=== PATIENT | female | born 1985 | race Caucasian/White ===

== ENCOUNTER 2017-05-12 07:56 | Emergency (ER) | payer OTHER ==
[2017-05-12] MEDS ORDERED: NORMAL SALINE 1000 ML 1,000 ML IV ONE ×2 (09:00→11:11)
[2017-05-12] MEDS ORDERED: ONDANSETRON HCL INJ/PF 4 MG/2 ML SDV IV ONE (09:06)
--- NOTE | 2017-05-12 09:07 | ER Document Report ---
ED General - General Chief Complaint: Nausea/Vomiting/Diarrhea Stated Complaint: VOMITING Time Seen by Provider: 05/12/17 08:49 Mode of Arrival: Ambulatory Information source: Patient - HPI Notes: 31-year-old female with a history of headaches presents today with complaints of nausea, vomiting, diarrhea, headache, myalgias and abdominal cramping 18 hours after she had 2 meals of tunafish in the last 24 hours. Tunafish was mixed with mayonnaise. denies any fevers or chills. Denies . Denies chest pain, shortness of breath, blurred vision, double vision, loss of vision, lightheadedness or rashes. Worse with time, nothing makes better. Tried antiemetic at home which did not help last night. Get the flu shot this year. Pain is 7 out of 10, cramping and throbbing. - Related Data Allergies/Adverse Reactions: Penicillins Allergy (Verified 05/12/17 07:58) Past Medical History - General Information source: Patient - Social History Smoking Status: Unknown if Ever Smoked Family History: None Neurological Medical History: Reports: Hx Migraine Past Surgical History: Reports: Hx Section - Immunizations Hx Diphtheria, Pertussis, Tetanus Vaccination: Yes Review of Systems - Review of Systems Constitutional: See HPI EENT: No symptoms reported Cardiovascular: No symptoms reported Respiratory: No symptoms reported Gastrointestinal: See HPI Genitourinary: No symptoms reported Female Genitourinary: No symptoms reported Musculoskeletal: No symptoms reported Skin: No symptoms reported Hematologic/Lymphatic: No symptoms reported Neurological/Psychological: No symptoms reported Physical Exam - Vital signs Vitals: Temp Pulse Resp BP Pulse Ox 100 F 128 H 18 112/79 97 05/12/17 08:09 05/12/17 08:09 05/12/17 08:09 05/12/17 08:09 05/12/17 08:09 Interpretation: Tachycardic - General General appearance: Appears well In distress: Mild - HEENT Head: Normocephalic Eyes: Normal Conjunctiva: Normal External canal: Normal Tympanic membrane: Normal, Serous effusion Sinus: Normal Nasal: Normal Mouth/Lips: Normal Mucous membranes: Normal Pharynx: Normal, Erythema Neck: Normal - Respiratory Respiratory status: No respiratory distress Chest status: Nontender Breath sounds: Normal Chest palpation: Normal - Cardiovascular Rhythm: Regular, Tachycardia Heart sounds: Normal auscultation Murmur: No Pulses: Normal: Radial - Abdominal Inspection: Normal Distension: No distension Bowel sounds: Hyperactive Tenderness: Tender - diffuse. No: McBurney's point, Salvador's sign Organomegaly: No organomegaly - Extremities General upper extremity: Normal inspection, Nontender, Normal strength, Normal temperature General lower extremity: Normal inspection, Nontender, Normal strength, Normal temperature - Neurological Neuro grossly intact: Yes Cognition: Normal Orientation: AAOx4 [place] Coma Scale Verbal: Oriented [place] Coma Scale Motor: Obeys Commands Speech: Normal Biceps - Reflex grade: 2 = Normal Triceps - Reflex grade: 2 = Normal - Psychological Associated symptoms: Normal affect, Normal mood - Skin Skin Temperature: Warm Skin Moisture: Dry Skin Color: Normal Course - Re-evaluation Re-evalutation: lab findings showed a potassium of 3.0. Will do EKG place patient on a personnel monitor and give her 40 mEq of potassium chloride to replace potassium, will repeat potassium testing. Still waiting for urinalysis results. Potassium elevated to 3.3. Patient is feeling much better, reports she has not had any nausea or vomiting since this morning after she came to the ER. consulted this case with Dr. Bo Wyman, ER attending, regarding potassium patient is feeling better. Agreed that since patient is feeling better and her potassium is trending up with a high potassium diet should be okay to go home. Patient feels she is well hydrated. Advised to have a high potassium diet with eating foods like bananas and replacing with Pedialyte. Patient's vitals are stable. She would like to go home. Discussed with patient that we will be giving her a prescription for Zofran for antinausea medication as well as Bentyl to help with any diarrhea. Patient verbalized understanding of these instructions and agree with plan of care. - Vital Signs Vital signs: Temp Pulse Resp BP Pulse Ox 98.9 F 128 H 15 108/70 100 05/12/17 13:44 05/12/17 08:09 05/12/17 14:01 05/12/17 14:01 05/12/17 14:01 - Laboratory Result Diagrams: 05/12/17 09:35 05/12/17 14:00 Laboratory results interpreted by me: 05/12/17 05/12/17 05/12/17 09:35 09:35 09:35 Seg Neutrophils % 85.3 H Lymphocytes % 8.7 L Potassium 3.0 L* Phosphorus 1.8 L C-Reactive Protein 54.8 H Urine Urobilinogen Ur Leukocyte Esterase 05/12/17 05/12/17 11:15 14:00 Seg Neutrophils % Lymphocytes % Potassium 3.3 L Phosphorus C-Reactive Protein Urine Urobilinogen 2.0 H Ur Leukocyte Esterase SMALL H Discharge - Discharge Clinical Impression: Hypokalemia, Gastroenteritis Condition: Good Disposition: HOME, SELF-CARE Instructions: Antinausea Medication ([facility]), Food Poisoning ([facility]) Additional Instructions: Food Poisoning Your symptoms appear to be due to food poisoning. Food poisoning is due to bacterial poisons in food. It occurs when bacteria (usually staph) get into food, then have time to grow before the food is eaten. Symptoms usually begin about an hour after the contaminated food is eaten -- typically abdominal cramps , vomiting, and diarrhea. Refrigeration of food usually prevents food poisoning. Food poisoning usually resolves within a few hours without treatment. The bowel should be rested: nothing by mouth for about four hours, then frequent sips of clear liquids for another six to eight hours. Further treatment may be required for severe or prolonged vomiting, dehydration, or severe abdominal cramping. Call the doctor or come back if symptoms do not resolve within 24 hours, or if you worsen in any way -- for example you develop worsening pain, high fever, or blood in the stools. Hypokalemia You have an abnormally decreased level of serum potassium. Hypokalemia may cause weakness, fatigue, or heart rhythm abnormalities. Sometimes there are no symptoms at all. Usually, low serum potassium is due to taking diuretics ( water pills). It can also be due to excessive vomiting or diarrhea. If no obvious cause is evident, further evaluation will be necessary. Treatment is usually oral potassium supplements. Take these exactly as prescribed. You may also want to select foods which are naturally high in potassium -- fruits (such as bananas, cantaloupe, grapes, oranges, prunes, tomatoes), fresh vegetables (potatoes, spinach, beans, peas), orange or tomato juice, tomato pasta sauce, milk, fish (halibut, tuna, salmon, michael) A follow-up blood test is usually performed to assure that the potassium is returning to normal. Call the physician if you suffer severe weakness, muscle twitching or cramping, palpitations (pounding or irregular heartbeat), or any other new or alarming symptoms. Up with primary care within 24 hours. Follow high potassium diet. Prescribed Antidiarrhea Medication Your doctor has prescribed antidiarrhea medication for you. While the usual treatment for diarrhea is a clear liquid diet to rest the bowels, an antidiarrheal medicine may allow you to be more active and comfortable while you recover. This medication can make you drowsy. Do not drive or operate machinery while under its influence. Do not combine with alcohol. Prescription antidiarrhea medicine can cause dry mouth. Occasionally, it can make you unable to pass your urine. Do not exceed the prescribed dosage. Severe abdominal pains, lightheadedness, bloody stool, or fever indicate that your disease is worsening. If these occur, stop the medication and see your doctor at once. Return immediately for any new or worsening symptoms. Follow up with primary care provider, call tomorrow to make followup appointment. Prescriptions: Dicyclomine HCl [Bentyl 10 mg Capsule] 10 mg PO TIDP PRN #10 capsule PRN Reason: Ondansetron [Zofran Odt 4 mg Tablet] 1 - 2 tab PO Q4H PRN #15 tab.rapdis PRN Reason: For Nausea/Vomiting Forms: Return to Work Referrals: TANNER RODRIGUEZ MD [ACTIVE STAFF] - Follow up tomorrow
[2017-05-12 10:05] LABS: ABSOLUTE EOSINOPHILS # (AUTO) 0.1 10^3/uL (0.0-0.6); ABSOLUTE LYMPHOCYTES (AUTO) 0.8 10^3/uL (0.5-4.7); ABSOLUTE MONOCYTES (AUTO) 0.4 10^3/uL (0.1-1.4); ABSOLUTE NEUT (AUTO) 7.9 10^3/uL (1.7-8.2); BASOPHILS % (AUTO) 0.4 % (0-2); EOSINOPHILS % (AUTO) 0.7 % (0-6); HEMATOCRIT 40.3 % (36.0-47.0); HEMOGLOBIN 13.8 g/dL (12.0-15.5); LYMPHOCYTES % (AUTO) 8.7 % (13-45); MEAN CORPUSCULAR HGB CONC 34.2 g/dL (32.0-36.0); MEAN CORPUSCULAR VOLUME 88 fl (80-97); MONOCYTES % (AUTO) 4.9 % (3-13); PLATELET COUNT 171 10^3/uL (150-450); RED BLOOD COUNT 4.61 10^6/uL (3.72-5.28); SEGMENTED NEUTROPHILS % (AUTO) 85.3 % (42-78); TOTAL CELLS COUNTED % (AUTO) 100 %; WHITE BLOOD COUNT 9.2 10^3/uL (4.0-10.5)
[2017-05-12 10:26] LABS: A TYPE INFLUENZA AG NEGATIVE (NEGATIVE); B INFLUENZA AG NEGATIVE (NEGATIVE)
[2017-05-12 10:31] LABS: ALANINE AMINOTRANSFERASE 31 U/L (9-52); ALBUMIN 3.9 g/dL (3.5-5.0); ALKALINE PHOSPHATASE 63 U/L (38-126); ANION GAP 10 (5-19); ASPARTATE AMINO TRANSFERASE 32 U/L (14-36); BILIRUBIN,DIRECT 0.4 mg/dL (0.0-0.4); BILIRUBIN,TOTAL 0.6 mg/dL (0.2-1.3); BLOOD UREA NITROGEN 11 mg/dL (7-20); C-REACTIVE PROTEIN 54.8 mg/L (<10.0); CALCIUM 8.6 mg/dL (8.4-10.2); CARBON DIOXIDE 22 mmol/L (22-30); CHLORIDE 106 mmol/L (98-107); GLUCOSE 103 mg/dL (75-110); TOTAL PROTEIN 6.5 g/dL (6.3-8.2)
[2017-05-12] MEDS ORDERED: POTASSIUM CHLORIDE 10 MEQ TABLET.SA PO ONE (10:53)
[2017-05-12] MEDS ORDERED: PROMETHAZINE HCL INJ 25 MG/1 ML VIAL IV ONE (11:15)
[2017-05-12] MEDS ORDERED: DICYCLOMINE HCL 10 MG CAPSULE PO ONE (11:15)
[2017-05-12 11:25] LABS: MAGNESIUM 1.7 mg/dL (1.6-2.3); PHOSPHORUS 1.8 mg/dL (2.5-4.5)
[2017-05-12 11:45] LABS: APPEARANCE,URINE SLIGHTLY-CLOUDY; BILIRUBIN,URINE NEGATIVE (NEGATIVE); COLOR,URINE YELLOW; GLUCOSE, URINE NEGATIVE (NEGATIVE); KETONES,URINE NEGATIVE (NEGATIVE); LEUKOCYTE ESTERASE,URINE SMALL (NEGATIVE); NITRITE,URINE NEGATIVE (NEGATIVE); PROTEIN,URINE NEGATIVE (NEGATIVE); URINE SPECIFIC GRAVITY 1.012
[2017-05-12] MEDS ORDERED: ACETAMINOPHEN 325 MG TABLET PO ONE (12:07)
--- NOTE | 2017-05-12 12:54 | EKG REPORT ---
SEVERITY:- BORDERLINE ECG - SINUS RHYTHM PROBABLE LEFT ATRIAL ABNORMALITY BORDERLINE T WAVE ABNORMALITIES : Confirmed by: Johnathan Camacho MD 12-May-2017 12:54:12
[2017-05-12 15:38] VITALS: BP 97/66
== END 2017-05-12 16:00 | disposition home or self-care (01) ==
LOC: ER 07:56
DX: K52.9 Noninfective gastroenteritis and colitis, unspecified (principal); E87.6 Hypokalemia; R11.2 Nausea with vomiting, unspecified; R51 Headache; M79.1 Myalgia; R00.0 Tachycardia, unspecified; R10.817 Generalized abdominal tenderness; Z88.0 Allergy status to penicillin
CPT/HCPCS: 93005; 99284; 96361; 96374; 96375; 36415; 87086; 83735; 84100; 84132; 85025; 81025; 86140; 87088; 80053; 81001; 87804; 93010; J3490; J2550; J2405; J7030

== ENCOUNTER 2017-07-09 02:11 | Emergency (ER) | payer OTHER ==
[2017-07-09] MEDS ORDERED: NORMAL SALINE 1000 ML 1,000 ML IV ONE ×2 (02:46→04:08)
[2017-07-09] MEDS ORDERED: ONDANSETRON HCL INJ/PF 4 MG/2 ML SDV IV ONE (02:47)
--- NOTE | 2017-07-09 02:48 | ER Document Report ---
ED GI/ - General Chief Complaint: Nausea/Vomiting/Diarrhea Stated Complaint: VOMITING/DIARRHEA Time Seen by Provider: 07/09/17 02:40 Notes: Patient is a 31-year-old female who comes emergency department for chief complaint of vomiting, diarrhea, and mid abdominal pain. Symptoms started this afternoon. She states she has had about 20 episodes of diarrhea, watery, nonbloody. She vomited about 6 times. She denies fever. She denies any obvious sick contacts, raw food, recent antibiotics, recent travel. She has had a tubal ligation and C-sections, takes no daily medications, denies any medical history otherwise. TRAVEL OUTSIDE OF THE [place] IN LAST 30 DAYS: No - Related Data Allergies/Adverse Reactions: Penicillins Allergy (Verified 07/09/17 02:16) Past Medical History - General Information source: Patient - Social History Smoking Status: Never Smoker Drug Abuse: None Lives with: Family Family History: None Neurological Medical History: Reports: Hx Migraine Renal/ Medical History: Denies: Hx Peritoneal Dialysis Past Surgical History: Reports: Hx Section - Immunizations Hx Diphtheria, Pertussis, Tetanus Vaccination: Yes Review of Systems - Review of Systems Constitutional: No symptoms reported EENT: No symptoms reported Cardiovascular: No symptoms reported Respiratory: No symptoms reported Gastrointestinal: See HPI Genitourinary: No symptoms reported Female Genitourinary: No symptoms reported Musculoskeletal: No symptoms reported Skin: No symptoms reported Hematologic/Lymphatic: No symptoms reported Neurological/Psychological: No symptoms reported Physical Exam - Vital signs Vitals: Temp Pulse Resp BP Pulse Ox 97.8 F 98 20 136/97 H 97 07/09/17 02:19 07/09/17 02:19 07/09/17 02:19 07/09/17 02:19 07/09/17 02:19 - General General appearance: Alert In distress: None - HEENT Head: Normocephalic, Atraumatic Eyes: Normal Conjunctiva: Normal Extraocular movements intact: Yes Eyelashes: Normal Pupils: PERRL Nasal: Normal Mouth/Lips: Normal Mucous membranes: Dry Pharynx: Normal Neck: Normal - Respiratory Respiratory status: No respiratory distress Breath sounds: Normal. No: Decreased air movement, Wheezing - Cardiovascular Rhythm: Regular. No: Tachycardia Heart sounds: Normal auscultation, S1 appreciated, S2 appreciated - Abdominal Inspection: Normal Distension: No distension Bowel sounds: Hyperactive Tenderness: Tender - Mild generalized tenderness with no guarding, rigidity, or rebound tenderness - Back Back: Normal, Nontender. No: Tender - Extremities General upper extremity: Normal inspection, Nontender, Normal ROM, Normal strength General lower extremity: Normal inspection, Nontender, Normal ROM, Normal strength. No: Edema - Neurological Neuro grossly intact: Yes Cognition: Normal Orientation: AAOx4 [place] Coma Scale Eye Opening: Spontaneous [place] Coma Scale Verbal: Oriented [place] Coma Scale Motor: Obeys Commands [place] Coma Scale Total: 15 Speech: Normal Motor strength normal: LUE, RUE, LLE, RLE Sensory: Normal - Skin Skin Temperature: Warm Skin Moisture: Dry Skin Color: Flushed Course - Re-evaluation Re-evalutation: Patient has dry mucous membranes, mild generalized abdominal tenderness, persistent diarrhea. Provided a sample, afterwards she was medicated. She appears clinically dry. CBC shows leukocytosis, nonspecific with diarrhea and dehydration. Chemistry does show dehydration with low bicarbonate. Urine is slightly contaminated but also has large amount of leukocyte esterase with bacteria. Stool has some blood in it but this is not surprising given persistent diarrhea, it is not grossly bloody, no white blood cells, C. difficile negative, culture pending. After medications and rehydration, patient states she feels excellent, she is tolerating fluids without any difficulty. Suspect this is infectious and not acute abdomen, patient does not appear septic (well-appearing, unremarkable vital signs). Starting on Cipro for UTI and persistent diarrhea pending cultures. Discussed medications, diet, follow-up, return precautions. Patient states understanding and agreement. - Vital Signs Vital signs: Temp Pulse Resp BP Pulse Ox 97.8 F 98 20 125/96 H 97 07/09/17 02:19 07/09/17 02:19 07/09/17 04:02 07/09/17 04:02 07/09/17 04:02 - Laboratory Result Diagrams: 07/09/17 02:55 07/09/17 02:55 Laboratory results interpreted by me: 07/09/17 07/09/17 07/09/17 02:55 02:55 02:55 WBC 16.1 H Lymphocytes % 12.6 L Absolute Neutrophils 12.5 H Absolute Eosinophils 0.8 H Chloride 109 H Carbon Dioxide 18 L Glucose 124 H Urine Protein 30 H Ur Leukocyte Esterase LARGE H Discharge - Discharge Clinical Impression: Nausea vomiting and diarrhea, Dehydration Condition: Stable Disposition: HOME, SELF-CARE Additional Instructions: Initial stool tests are negative, we have a stool culture growing in our lab. Because of persistent diarrhea and developing urinary tract infection I recommend taking the Cipro antibiotic as prescribed. Take the [place] given an Dosepak only if needed to start on bowels and for discomfort. Take the Phenergan for nausea, take the Carafate to help heal your stomach. Start with clear fluids and bland diet, slowly progress. Return if you worsen including return or uncontrolled vomiting, spiking fever, returned or worsening abdominal pain, or any other concerning or worsening symptoms. Prescriptions: Ciprofloxacin HCl [Cipro 500 mg Tablet] 500 mg PO BID #14 tablet Promethazine HCl [Phenergan 25 mg Tablet] 1 - 2 tab PO Q6H PRN #20 tablet PRN Reason: Sucralfate [Carafate 1 gm Tablet] 1 gm PO QID #20 tablet
[2017-07-09 03:14] LABS: ABSOLUTE BASOPHILS # (AUTO) 0.1 10^3/uL (0.0-0.2); ABSOLUTE EOSINOPHILS # (AUTO) 0.8 10^3/uL (0.0-0.6); ABSOLUTE MONOCYTES (AUTO) 0.8 10^3/uL (0.1-1.4); ABSOLUTE NEUT (AUTO) 12.5 10^3/uL (1.7-8.2); BASOPHILS % (AUTO) 0.4 % (0-2); EOSINOPHILS % (AUTO) 4.7 % (0-6); HEMATOCRIT 45.5 % (36.0-47.0); HEMOGLOBIN 15.5 g/dL (12.0-15.5); LYMPHOCYTES % (AUTO) 12.6 % (13-45); MEAN CORPUSCULAR HEMOGLOBIN 30.2 pg (27.0-33.4); MEAN CORPUSCULAR VOLUME 89 fl (80-97); MONOCYTES % (AUTO) 4.7 % (3-13); PLATELET COUNT 260 10^3/uL (150-450); RED BLOOD COUNT 5.12 10^6/uL (3.72-5.28); SEGMENTED NEUTROPHILS % (AUTO) 77.6 % (42-78); TOTAL CELLS COUNTED % (AUTO) 100 %; WHITE BLOOD COUNT 16.1 10^3/uL (4.0-10.5)
[2017-07-09 03:27] LABS: ALANINE AMINOTRANSFERASE 33 U/L (9-52); ALBUMIN 4.8 g/dL (3.5-5.0); ALKALINE PHOSPHATASE 113 U/L (38-126); ANION GAP 16 (5-19); ASPARTATE AMINO TRANSFERASE 31 U/L (14-36); BILIRUBIN,DIRECT 0.2 mg/dL (0.0-0.4); BILIRUBIN,TOTAL 0.5 mg/dL (0.2-1.3); BLOOD UREA NITROGEN 15 mg/dL (7-20); CALCIUM 9.8 mg/dL (8.4-10.2); CARBON DIOXIDE 18 mmol/L (22-30); CHLORIDE 109 mmol/L (98-107); GLUCOSE 124 mg/dL (75-110); LIPASE 87.8 U/L (23-300); POTASSIUM 4.2 mmol/L (3.6-5.0); SODIUM 142.8 mmol/L (137-145); TOTAL PROTEIN 7.9 g/dL (6.3-8.2)
[2017-07-09 04:02] LABS: CALCIUM OXALATE CRYSTALS,URINE MANY /HPF
[2017-07-09] MEDS ORDERED: MORPHINE SULFATE 10 MG/ML INJ IV ONE (04:08)
[2017-07-09 04:13] LABS: COLOR,URINE YELLOW
[2017-07-09 04:14] LABS: LEUKOCYTE ESTERASE,URINE LARGE (NEGATIVE); NITRITE,URINE NEGATIVE (NEGATIVE)
[2017-07-09 04:15] LABS: APPEARANCE,URINE OPAQUE; BILIRUBIN,URINE NEGATIVE (NEGATIVE); GLUCOSE, URINE NEGATIVE (NEGATIVE); KETONES,URINE NEGATIVE (NEGATIVE); PROTEIN,URINE 30 mg/dL (NEGATIVE); URINE SPECIFIC GRAVITY 1.025; UROBILINOGEN,URINE NEGATIVE mg/dL (<2.0)
[2017-07-09] MEDS ORDERED: OXYCODONE-ACETAMINOPHEN 5-325 MG TABLET PO ONE (05:26)
[2017-07-09] MEDS ORDERED: SUCRALFATE 1 GM TABLET PO ONE (05:26)
[2017-07-09] MEDS ORDERED: PROMETHAZINE HCL 25 MG TABLET PO ONE (05:26)
[2017-07-09] MEDS ORDERED: HYDROCODONE/ACETAMINOPHEN 5-325 MG (6 TAB/ER DISP) PO PRN (06:25)
[2017-07-09 06:49] VITALS: BP 123/91
== END 2017-07-09 06:45 | disposition home or self-care (01) ==
LOC: ER 02:11
DX: R11.2 Nausea with vomiting, unspecified (principal); R19.7 Diarrhea, unspecified; K92.1 Melena; E86.0 Dehydration; D72.829 Elevated white blood cell count, unspecified; R10.9 Unspecified abdominal pain; R10.817 Generalized abdominal tenderness; Z88.0 Allergy status to penicillin
CPT/HCPCS: 99284; 96361; 96374; 96375; 36415; 87045; 87086; 89055; 87205; 83690; 85025; 82272; 81025; 87088; 80053; 81001; 87493; J2270; J2405; J7030

== ENCOUNTER 2017-10-19 01:57 | Emergency (ER) | payer OTHER ==
[2017-10-19] MEDS ORDERED: NORMAL SALINE 1000 ML 1,000 ML IV ONE (02:18)
[2017-10-19] MEDS ORDERED: KETOROLAC TROMETHAMINE INJ/PF 30 MG/1 ML SDV IV ONE (02:19)
[2017-10-19] MEDS ORDERED: PROCHLORPERAZINE EDISYLATE INJ 10 MG/2 ML VIAL IV ONE (02:19)
[2017-10-19] MEDS ORDERED: DIPHENHYDRAMINE HCL 50 MG/ML VIAL IV ONE (02:19)
--- NOTE | 2017-10-19 02:24 | ER Document Report ---
HPI - HPI Pain Level: 4 Notes: Patient is a 32-year-old female with a history of chronic recurrent migraines who presents to the ED complaining of a migraine 2-3 days. Patient states that she was not taking her Lexapro, Topamax for the last 6-7 days as she was away from her house. Patient states that she did take some this afternoon, but her headache has been persistent. Patient states that her headache is to the frontal area. The pain does not radiate. Patient states that this pain is not new for her and mimics her acute migraine exacerbations. Patient states that she had an MRI and imaging performed within the last year. Patient states that she did have 3 episodes of vomiting today because of the headache, but has been keeping some fluids in. She is urinating normally and having normal bowel movements. Patient is currently on her menstrual period and had a tubal ligation performed in the past. Denies any fever, head injury, neck pain, changes in vision/speech/mentation/hearing, URI, sore throat, chest pain, palpitations, syncope, cough, shortness of breath, wheeze, dyspnea, abdominal pain, diarrhea, urinary retention, dysuria, hematuria, loss of control of bowel or bladder, numbness/tingling, muscle paralysis/weakness, or rash. - ROS Systems Reviewed and Negative: Yes All other systems reviewed and negative - REPRODUCTIVE Reproductive: REPORTS: : Past Medical History - Social History Smoking Status: Never Smoker Family History: None Neurological Medical History: Reports: Hx Migraine Renal/ Medical History: Denies: Hx Peritoneal Dialysis Past Surgical History: Reports: Hx Section - Immunizations Hx Diphtheria, Pertussis, Tetanus Vaccination: Yes Vertical Provider Document - CONSTITUTIONAL Agree With Documented VS: Yes Notes: PHYSICAL EXAMINATION: GENERAL: Well-appearing, well-nourished and in no acute distress. A&Ox4. Answers questions appropriately. HEAD: Atraumatic, normocephalic. Non-tender. EYES: Pupils equal round and reactive to light, extraocular movements intact, sclera anicteric, conjunctiva are normal. No nystagmus. ENT: EAC clear b/l. TM's intact b/l without erythema, fluid, or perforation. Nares patent and without discharge. oropharynx clear without exudates. No tonsilar hypertrophy or erythema. Moist mucous membranes. No sinus tenderness. NECK: Normal range of motion, supple without lymphadenopathy. No rigidity. No midline tenderness. Kernig/brudzinski neg. LUNGS: Breath sounds clear to auscultation bilaterally and equal. No wheezes rales or rhonchi. HEART: Regular rate and rhythm without murmurs, rubs, gallops. ABDOMEN: Soft, nontender, nondistended abdomen. No guarding, no rebound. No masses appreciated. Normal bowel sounds present. No CVA tenderness bilaterally. Musculoskeletal: Ext b/l: FROM to passive/active. Strength 5+/5. No deficits noted. Extremities: No cyanosis, clubbing, or edema b/l. Peripheral pulses 2+. Capillary refill less than 2 seconds. NEUROLOGICAL: NIH 0. GCS 15. Cranial nerves grossly intact. Normal speech, normal gait. Normal sensory, motor exams. Reflexes 2+ b/l. ELÍAS's negative. Pronator drift negative. PSYCH: Normal mood, normal affect. SKIN: Warm, Dry, normal turgor, no rashes or lesions noted. - INFECTION CONTROL TRAVEL OUTSIDE OF THE [place] IN LAST 30 DAYS: No Course - Re-evaluation Re-evalutation: 10/19/17 03:35 Patient is an afebrile, well-hydrated, 32-year-old female who presents to the ED with a headache, suspect 1 of her typical migraines based on H&P today. Vitals are acceptable without any significant tachycardia, tachypnea, or hypoxia. PE is otherwise unremarkable for any focal neurological deficits. NIH 0, GCS 15, cranial nerves grossly intact. Patient was given fluids, Benadryl, Compazine, and Toradol. Patient's headache greatly improved and patient would like to go home. 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 Patient is tolerating p.o. without difficulties and is nontoxic-appearing. No labs or imaging warranted at this time based on H&P. Low suspicion for any acute glaucoma, temporal arteritis, meningitis, intracranial hemorrhage, ischemic stroke, or fracture at this time. Patient is aware that her condition can change from initial presentation and that she needs to monitor symptoms closely for any acute changes. Conservative measures for symptoms. Recheck with your PCM in 2-3 days. Return to the ED with any worsening/concerning symptoms otherwise as reviewed discharge. Patient is in agreement. - Vital Signs Vital signs: Temp Pulse Resp BP Pulse Ox 97.4 F 73 18 115/87 H 99 10/19/17 02:03 10/19/17 02:03 10/19/17 02:03 10/19/17 02:03 10/19/17 02:03 Discharge - Discharge Clinical Impression: Headache Qualifiers: Headache type: unspecified Headache chronicity pattern: acute headache Intractability: not intractable Qualified Code(s): R51 - Headache Condition: Stable Disposition: HOME, SELF-CARE Instructions: Headache ([facility]) Additional Instructions: Rest, Ice/cool compresses Tylenol/ibuprofen as needed Light stretches daily Strength exercises as able Moist heat and massage may help F/u with your PCP in 3-5 days for a recheck Consider consult(s) with Neurology for ongoing/worsening symptoms Return to the ED with any worsening symptoms and/or development of fever, headache, changes in behavior/mentation/vision/speech, chest pain, palpitations , syncope, shortness of breath, trouble breathing, abdominal pain, n/v/d, blood in stool/urine, loss of control of bowel/bladder, urinary retention, muscle weakness/paralysis, saddle anesthesia, numbness/tingling, or other worsening symptoms that are concerning to you. Forms: Elevated Blood Pressure Referrals: SAMEERA TORIBIO MD [NO LOCAL MD] - Follow up as needed
[2017-10-19 03:56] VITALS: BP 118/73
== END 2017-10-19 03:56 | disposition home or self-care (01) ==
LOC: ER 01:57
DX: R51 Headache (principal); R11.10 Vomiting, unspecified; R40.2410 Glasgow coma scale score 13-15, unspecified time
CPT/HCPCS: 99284; 96361; 96374; 96375; J1200; J1885; J0780; J7030

== ENCOUNTER 2018-09-01 15:26 | Emergency (ER) | payer OTHER ==
[2018-09-01] MEDS ORDERED: KETOROLAC TROMETHAMINE 60 MG/2 ML SDV IM ONE (16:17)
[2018-09-01] MEDS ORDERED: DIPHENHYDRAMINE HCL 50 MG/ML VIAL IV ONE (16:17)
[2018-09-01] MEDS ORDERED: PROCHLORPERAZINE EDISYLATE INJ 10 MG/2 ML VIAL IV ONE (16:17)
--- NOTE | 2018-09-01 16:27 | ER Document Report ---
HPI - HPI Time Seen by Provider: 09/01/18 16:04 Pain Level: 5 Notes: Patient is a 32-year-old female with a history of chronic recurrent migraines who presents to the ED complaining of a migraine that began this morning. She did have associated n/v initially. Patient has been taking her home medications for migraines which usually work well for her, but when he gets to this point she needs to come to the emergency department. Patient states that her headache is to the frontal area which is where it is always located. The pain does not radiate. Patient states that this pain is not new for her and mimics her acute migraine exacerbations. Patient has had imaging in the past for this issue. I also evaluated this patient and treated her for her last migraine exacerbation last summer. Patient states that she has been able to keep fluids down otherwise today, but with decreased p.o. intake. She is urinating normally and having normal bowel movements. Patient had a tubal ligation performed in the past. Denies any fever, head injury, neck pain, changes in vision/speech/mentation/hearing, URI, sore throat, chest pain, palpitations, syncope, cough, shortness of breath, wheeze, dyspnea, abdominal pain, diarrhea, urinary retention, dysuria, hematuria, loss of control of bowel or bladder, numbness/tingling, muscle paralysis/weakness, or rash. 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 Migraine cocktail worked well for her at her last visit. - ROS Systems Reviewed and Negative: Yes All other systems reviewed and negative - REPRODUCTIVE Reproductive: DENIES: : - DERM Skin Color: Normal Past Medical History - Social History Smoking Status: Never Smoker Family History: None Patient has suicidal ideation: No Patient has homicidal ideation: No Neurological Medical History: Reports: Hx Migraine Renal/ Medical History: Denies: Hx Peritoneal Dialysis Past Surgical History: Reports: Hx Section - Immunizations Hx Diphtheria, Pertussis, Tetanus Vaccination: Yes Vertical Provider Document - CONSTITUTIONAL Agree With Documented VS: Yes Notes: PHYSICAL EXAMINATION: GENERAL: Well-appearing, well-nourished and in no acute distress. A&Ox4. Answers questions appropriately. HEAD: Atraumatic, normocephalic. Non-tender. EYES: Pupils equal round and reactive to light, extraocular movements intact, sclera anicteric, conjunctiva are normal. No nystagmus. ENT: EAC clear b/l. TM's intact b/l without erythema, fluid, or perforation. Nares patent and without discharge. oropharynx clear without exudates. No tonsilar hypertrophy or erythema. Moist mucous membranes. No sinus tenderness. NECK: Normal range of motion, supple without lymphadenopathy. No rigidity/meningismus. No midline tenderness. LUNGS: Breath sounds clear to auscultation bilaterally and equal. No wheezes rales or rhonchi. HEART: Regular rate and rhythm without murmurs, rubs, gallops. ABDOMEN: Soft, nontender, nondistended abdomen. No guarding, no rebound. Normal bowel sounds present. No CVA tenderness bilaterally. Musculoskeletal: Ext b/l: FROM to passive/active. Strength 5+/5. No deficits noted. No bony tenderness of extremities. Extremities: No cyanosis, clubbing, or edema b/l. Peripheral pulses 2+. Capillary refill less than 2 seconds. NEUROLOGICAL: NIH 0. GCS 15. Cranial nerves grossly intact. Normal speech, normal gait. Normal sensory, motor exams. Reflexes 2+ b/l. ELÍAS's negative. Pronator drift negative. Heel/dugan, finger/nose wnl. Rhomberg neg. PSYCH: Normal mood, normal affect. SKIN: Warm, Dry, normal turgor, no rashes or lesions noted. - INFECTION CONTROL TRAVEL OUTSIDE OF THE [place] IN LAST 30 DAYS: No Course - Re-evaluation Re-evalutation: 09/01/18 18:07 Patient is an afebrile, well-hydrated, 32-year-old female who presents to the ED with a headache, suspect migraine. Vitals are acceptable without any significant tachycardia, tachypnea, or hypoxia. PE is otherwise unremarkable for any focal neurological deficits. NIH 0, GCS 15, cranial nerves grossly intact. Patient has had headaches like this in the past recently. No labs or imaging warranted at this time based on H&P. Patient was given Toradol, Compazine, and benadryl which has resolved her headache. Patient states that she is feeling much better and would like to go home. She is nontoxic-appearing and is tolerating p.o. without any difficulties. 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 Low suspicion for any acute glaucoma, temporal arteritis, meningitis, intracranial hemorrhage, ischemic stroke, sepsis, or fracture at this time. Patient is aware that this condition can change from initial presentation and that she needs to monitor symptoms closely for any acute changes. Recheck with your PCM/neurologist in 3-5 days. Return to the ED with any worsening/concerning symptoms otherwise as reviewed in discharge. Patient is in agreement. - Vital Signs Vital signs: Temp Pulse Resp BP Pulse Ox 97.4 F 71 18 122/83 97 09/01/18 15:31 09/01/18 15:31 09/01/18 15:31 09/01/18 15:31 09/01/18 15:31 Discharge - Discharge Clinical Impression: Headache Qualifiers: Headache type: unspecified Headache chronicity pattern: acute headache Intractability: not intractable Qualified Code(s): R51 - Headache Condition: Stable Disposition: HOME, SELF-CARE Instructions: Headache ([facility]) Additional Instructions: Rest, Ice/cool compress Tylenol/ibuprofen as needed Light stretches daily Strength exercises as able Moist heat and massage may help F/u with your PCP/Neurology in 3-5 days for a recheck Return to the ED with any worsening symptoms and/or development of fever, headache, changes in behavior/mentation/vision/speech, chest pain, palpitations, syncope, shortness of breath, trouble breathing, abdominal pain, n/v/d, blood in stool/urine, loss of control of bowel/bladder, urinary retention, muscle weakness/paralysis, saddle anesthesia, numbness/tingling, or other worsening symptoms that are concerning to you. Referrals: SAMEERA TORIBIO MD [NO LOCAL MD] - Follow up as needed
[2018-09-01] MEDS ORDERED: KETOROLAC TROMETHAMINE INJ/PF 30 MG/1 ML SDV IV ONE (16:30)
[2018-09-01 18:11] VITALS: BP 126/88
== END 2018-09-01 18:12 | disposition home or self-care (01) ==
LOC: ER 15:26
DX: R51 Headache (principal)
CPT/HCPCS: 99283; 96372; 96374; 96375; J1200; J1885; J0780